=== PATIENT | male | born 1955 | race Caucasian/White ===

== ENCOUNTER → 2019-04-08 | Outpatient (CLI) | payer BC ==
[~2019-04-08] MED LIST: BUDEPRION XL150 MG PO; BUDEPRION XL300 MG; CIPRO 500MG TA500 MG PO; CITALOPRAM20 MG PO; COLACE 100100 MG/CAP PO; COZAAR100 MG PO; FLOMAX 0.40.4 MG/CAP PO; GLUCOPHAGE1000 MG PO; GLUCOTROL 5M5 MG/TAB PO; HCTZ 25MG25 MG PO; HYDROCODONE BIT1 TA3 PO; LEVAQUIN500 MG PO; METFORMIN500 MG PO; METOPROLOL SUCC50 M1 PO; MOBIC15 MG PO; NORCO 325 MG-51 TAB PO; PHENERGAN 25 TA25 MG PO; PHENERGAN25 MG RC; PYRIDIUM200 M1 PO; SYNTHROID0.05 MG/TA PO; ZOFRAN INJ4 MG/2 ML IV; [UNRECOGNIZED DRUG - OTHER] PO; [UNRECOGNIZED DRUG - OTHER] PO
== END ==
LOC: SUN.DIA 14:45
DX: E11.9 Type 2 diabetes mellitus without complications (principal); I10 Essential (primary) hypertension
CPT/HCPCS: G0108

== ENCOUNTER → 2019-04-23 | Outpatient (CLI) | payer BC | LOC: SUN.DIA 10:26 | DX: E11.9 Type 2 diabetes mellitus without complications (principal); I10 Essential (primary) hypertension | CPT/HCPCS: G0108 ==

== ENCOUNTER → 2019-04-29 | Outpatient (CLI) | payer BC | LOC: SUN.DIA 14:00 | DX: E11.9 Type 2 diabetes mellitus without complications (principal); I10 Essential (primary) hypertension | CPT/HCPCS: G0109 ==

== ENCOUNTER → 2019-05-06 | Outpatient (CLI) | payer BC | LOC: SUN.DIA 11:40 | DX: E11.9 Type 2 diabetes mellitus without complications (principal); I10 Essential (primary) hypertension | CPT/HCPCS: G0109 ==

== ENCOUNTER → 2019-05-13 | Outpatient (CLI) | payer BC | LOC: SUN.DIA 10:36 | DX: E11.9 Type 2 diabetes mellitus without complications (principal); I10 Essential (primary) hypertension | CPT/HCPCS: G0109 ==

== ENCOUNTER → 2019-05-20 | Outpatient (CLI) | payer BC | LOC: SUN.DIA 11:16 → DIA.ED 18:00 → SUN.DIA 18:00 | DX: E11.9 Type 2 diabetes mellitus without complications (principal); I10 Essential (primary) hypertension | CPT/HCPCS: G0109 ==

== ENCOUNTER → 2019-06-16 | Outpatient (CLI) | payer BC | LOC: DIA.ED 06-03 16:39 | DX: E11.9 Type 2 diabetes mellitus without complications (principal); I10 Essential (primary) hypertension | CPT/HCPCS: G0108 ==

== ENCOUNTER → 2019-08-04 | Outpatient (CLI) | payer BC | LOC: DIA.ED 10:58 | DX: E11.9 Type 2 diabetes mellitus without complications (principal); I10 Essential (primary) hypertension | CPT/HCPCS: G0108 ==